=== PATIENT | female | born 1950 | race Caucasian/White ===

== ENCOUNTER 2016-08-31 15:36 | Inpatient (IN) | payer MEDICARE, OTHER ==
--- NOTE | 2016-08-31 16:25 | PDOC ---
History of Present Illness - General Chief Complaint: Rectal Bleed Stated Complaint: RECTAL BLEEDING Time Seen by Provider: 08/31/16 16:16 History Source: Patient Exam Limitations: No Limitations - History of Present Illness Initial Comments: 65 yo Yakut speaking F with h/o DMII, HTN, gastritis sent by her doctor for bleeding per rectum. [employer] phone used ([phone]) to obtain information from the patient. She stated that she noted bright red blood on Monday when she strained her bowel movement. She attributes the bleeding to pushing too hard. Since Monday, she was having 1 rectal bleeding per day till Monday associated with subjective fever and chills. She had colonoscopy and endoscopy [address] Bates and they're normal to the patient's best knowledge. She c/o chest pain in upper L chest, non-radiating, 9/10, not associated with activity, constant, reproducible. She also has R lower back pain and LUQ pain x 2 days, non-radiating, reproducible with pressing, constant. Denies shortness of breath, urinary symptom, recent travel, dizziness, malaise. Past History - Past Medical History Allergies/Adverse Reactions: Allergies Allergy/AdvReac Type Severity Reaction Status Date / Time No Known Allergies Allergy Verified 08/31/16 15:59 Home Medications: Ambulatory Orders Aspirin [ASA -] 81 mg PO DAILY 08/31/16 Metformin HCl [Glucophage] 1,000 mg PO BID 08/31/16 - Psycho/Social/Smoking Cessation Hx Suicidal Ideation: No Smoking History: Never smoked Review of Systems - Review of Systems Able to Perform ROS?: Yes Is the patient limited Faroese proficient: Yes Constitutional: No: Chills, Fever Respiratory: No: Cough, Shortness of Breath Cardiac (ROS): Yes: Chest Pain ABD/GI: Yes: Abd. Pain w/ defecation, Rectal Bleeding, Abdominal cramping : No: Dysuria *Physical Exam - Vital Signs Last Vital Signs Temp Pulse Resp BP Pulse Ox 98 F 82 19 158/87 99 08/31/16 15:59 08/31/16 15:59 08/31/16 15:59 08/31/16 15:59 08/31/16 15:59 - Physical Exam General Appearance: No: Apparent Distress Neck: positive: Normal Thyroid, Supple Respiratory/Chest: positive: Lungs Clear, Normal Breath Sounds Cardiovascular: positive: Regular Rhythm, Regular Rate, S1, S2. negative: Murmur Gastrointestinal/Abdominal: positive: Flat, Soft, Tenderness (prominent in upper quadrants, less so in LLQ). negative: Guarding, Rebound Rectal Exam: positive: heme negative stool, hemorrhoids Musculoskeletal: negative: CVA Tenderness Extremity: negative: Swelling Neurologic: positive: Fully Oriented, Alert ED Treatment Course - LABORATORY CBC & Chemistry Diagram: 09/01/16 09:55 09/01/16 09:55 *DC/Admit/Observation/Transfer Diagnosis at time of Disposition: Rectal bleeding - Discharge Dispostion Condition at time of disposition: Stable Admit: Yes
--- NOTE | 2016-08-31 17:33 | PDOC ---
[id number] I have performed the following: I have examined & evaluated the patient, The case was reviewed & discussed with the resident, I agree w/resident's findings & plan, Exceptions are as noted - HPI HPI: 65 yo F hx DM2, HTN, gastritis presents with rectal bleeding. She notes that she has had recent constipation, has been straining to defecate. The last episode of bleeding was a few days ago. She also c/o L chest pain, intermittent for the past 3 days. Denies SOB, N/V/D, diaphoresis, f/c. - Physicial Exam PE: GENERAL: Awake, alert, and fully oriented, in no acute distress HEAD: No signs of trauma EYES: PERRLA, EOMI, sclera anicteric, conjunctiva clear ENT: Auricles normal inspection, hearing grossly normal, nares patent, oropharynx clear without exudates. Moist mucosa NECK: Normal ROM, supple, no lymphadenopathy, JVD, or masses LUNGS: Breath sounds equal, clear to auscultation bilaterally. No wheezes, and no crackles HEART: Regular rate and rhythm, normal S1 and S2, no murmurs, rubs or gallops ABDOMEN: Soft, +LUQ and RUQ tenderness with guarding, normoactive bowel sounds. No rebound. No masses EXTREMITIES: Normal range of motion, no edema. No clubbing or cyanosis. No cords, erythema, or tenderness NEUROLOGICAL: Cranial nerves II through XII grossly intact. Normal speech, normal gait SKIN: Warm, Dry, normal turgor, no rashes or lesions noted. - Medical Decision Making Noted to have upper abdominal tenderness on exam. Will obtain labs including CE and lipase, as well as UA. CT a/p to r/o colitis. If all wnl, DC home.
[2016-08-31 18:06] LABS: BASOPHIL 0.6 % (0-2.0); EOSINOPHIL 0.6 % (0-4.5); MCH 31.6 pg (25.7-33.7); MCHC 34.5 g/dl (32.0-36.0); MEAN CELL VOLUME 91.8 fl (80-96); NEUTROPHILS 62.1 % (42.8-82.8); PLATELET COUNT 245 K/MM3 (134-434); RDW 13.5 % (11.6-15.6); WHITE BLOOD COUNT 3.4 K/mm3 (4.0-10.0)
[2016-08-31 18:40] LABS: ALBUMIN 3.5 g/dl (3.4-5.0); ANION GAP 7 (8-16); BILIRUBIN,TOTAL 0.4 mg/dL (0.2-1.0); CALCIUM 8.4 mg/dL (8.5-10.1); CO2 25 mmol/L (21-32); COCKROFT - GAULT 35.3345; CREATININE 2.1 mg/dL (0.55-1.02); GLUCOSE,RANDOM 186 mg/dL (74-106); SGOT/AST 26 U/L (15-37); TOT PROT 8.2 g/dl (6.4-8.2)
[2016-08-31 18:44] LABS: ALK PHOS 36 U/L (45-117); SGPT/ALT 28 U/L (12-78); TROPONIN I < 0.02 ng/ml (0.00-0.05)
[2016-08-31 19:14] LABS: URINE APPEARANCE CLEAR; URINE BILIRUBIN NEGATIVE (NEGATIVE); URINE COLOR LTYELLOW; URINE GLUCOSE (UA) 1+ (NEGATIVE); URINE KETONE NEGATIVE (NEGATIVE); URINE LEUK ESTERASE NEGATIVE (NEGATIVE); URINE NITRITE NEGATIVE (NEGATIVE); URINE UROBILINOGEN NEGATIVE E.U./dl (0.2-1.0)
[2016-08-31 19:15] LABS: URINE BLOOD 1+ (NEGATIVE); URINE PROTEIN 2+ (NEGATIVE)
[2016-08-31 19:17] LABS: URINE BACTERIA RARE /hpf (NONE SEEN); URINE MUCUS RARE; URINE RBC <1 /hpf (0-3); URINE WBC <1 /hpf (3-5)
--- NOTE | 2016-08-31 20:36 | PDOC ---
*Physical Exam - Vital Signs Last Vital Signs Temp Pulse Resp BP Pulse Ox 98.7 F 72 17 152/70 98 08/31/16 19:20 08/31/16 19:20 08/31/16 19:20 08/31/16 19:20 08/31/16 19:20 <Stefan Martins - Last Filed: 08/31/16 20:35> - Vital Signs Last Vital Signs Temp Pulse Resp BP Pulse Ox 98.7 F 72 17 152/70 98 08/31/16 19:20 08/31/16 19:20 08/31/16 19:20 08/31/16 19:20 08/31/16 19:20 <Georgia Mares - Last Filed: 08/31/16 23:57> ED Treatment Course - LABORATORY CBC & Chemistry Diagram: 08/31/16 18:00 08/31/16 18:00 - ADDITIONAL ORDERS Additional order review: Laboratory Results 08/31/16 08/31/16 08/31/16 18:00 18:00 17:15 Sodium 134 L Potassium 4.7 Chloride 102 Carbon Dioxide 25 Anion Gap 7 L BUN 31 H Creatinine 2.1 H Creat Clearance w eGFR 23.79 Random Glucose 186 H Calcium 8.4 L Total Bilirubin 0.4 AST 26 ALT 28 Alkaline Phosphatase 36 L Creatine Kinase 67 Troponin I < 0.02 Total Protein 8.2 Albumin 3.5 Lipase 295 Urine Color Ltyellow Urine Appearance Clear Urine pH 5.0 Urine Protein 2+ H Urine Glucose (UA) 1+ H Urine Ketones Negative Urine Blood 1+ H Urine Nitrite Negative Urine Bilirubin Negative Urine Urobilinogen Negative Ur Leukocyte Esterase Negative Urine RBC <1 Urine WBC <1 Ur Epithelial Cells Rare Urine Bacteria Rare Urine Mucus Rare Stool Occult Blood Negative 08/31/16 18:00 RBC 2.83 L MCV 91.8 MCHC 34.5 RDW 13.5 MPV 8.0 Neutrophils % 62.1 Lymphocytes % 29.6 Monocytes % 7.1 Eosinophils % 0.6 Basophils % 0.6 <Stefan Martins - Last Filed: 08/31/16 20:35> - LABORATORY CBC & Chemistry Diagram: 08/31/16 18:00 08/31/16 18:00 - ADDITIONAL ORDERS Additional order review: Laboratory Results 08/31/16 08/31/16 08/31/16 18:00 18:00 17:15 Sodium 134 L Potassium 4.7 Chloride 102 Carbon Dioxide 25 Anion Gap 7 L BUN 31 H Creatinine 2.1 H Creat Clearance w eGFR 23.79 Random Glucose 186 H Calcium 8.4 L Total Bilirubin 0.4 AST 26 ALT 28 Alkaline Phosphatase 36 L Creatine Kinase 67 Troponin I < 0.02 Total Protein 8.2 Albumin 3.5 Lipase 295 Urine Color Ltyellow Urine Appearance Clear Urine pH 5.0 Ur Specific [place] 1.010 Urine Protein 2+ H Urine Glucose (UA) 1+ H Urine Ketones Negative Urine Blood 1+ H Urine Nitrite Negative Urine Bilirubin Negative Urine Urobilinogen Negative Ur Leukocyte Esterase Negative Urine RBC <1 Urine WBC <1 Ur Epithelial Cells Rare Urine Bacteria Rare Urine Mucus Rare Stool Occult Blood Negative 08/31/16 18:00 RBC 2.83 L MCV 91.8 MCHC 34.5 RDW 13.5 MPV 8.0 Neutrophils % 62.1 Lymphocytes % 29.6 Monocytes % 7.1 Eosinophils % 0.6 Basophils % 0.6 <Georgia Mares - Last Filed: 08/31/16 23:57> Medical Decision Making - Medical Decision Making 08/31/16 23:[address] Kavitha Riley's answering service ([phone]), no response. Paged Dr. Riley (via cell phone) at 23:19 Awaiting call back 08/31/16 23:56 Second call was placed to Dr. Riley (via cell phone) at 23:56 and patient's case was discussed <Georgia Mares - Last Filed: 08/31/16 23:57> *DC/Admit/Observation/Transfer - Discharge Dispostion Admit: Yes <Stefan Martins - Last Filed: 08/31/16 20:35> <Georgia Mares - Last Filed: 08/31/16 23:57> Diagnosis at time of Disposition: Rectal bleeding
[2016-09-01 10:34] LABS: BASOPHIL 0.6 % (0-2.0); EOSINOPHIL 0.9 % (0-4.5); MCHC 34.8 g/dl (32.0-36.0); MEAN CELL VOLUME 91.8 fl (80-96); MEAN PLT VOLUME 8.2 fl (7.5-11.1); NEUTROPHILS 49.1 % (42.8-82.8); PLATELET COUNT 220 K/MM3 (134-434); RDW 13.1 % (11.6-15.6); WHITE BLOOD COUNT 3.1 K/mm3 (4.0-10.0)
[2016-09-01] MEDS: DEXTROSE 5%-0.45% SALINE 1,000 ML IV SCH (10:40)
[2016-09-01 12:17] LABS: ALBUMIN 3.2 g/dl (3.4-5.0); BILIRUBIN,TOTAL 0.5 mg/dL (0.2-1.0); CALCIUM 8.4 mg/dL (8.5-10.1); COCKROFT - GAULT 38.59; CREATININE 1.8 mg/dL (0.55-1.02); TOT PROT 7.6 g/dl (6.4-8.2)
--- NOTE | 2016-09-01 17:27 | EKG ---
Test Reason : Blood Pressure : / mmHG Vent. Rate : 072 BPM Atrial Rate : 072 BPM P-R Int : 168 ms QRS Dur : 088 ms QT Int : 400 ms P-R-T Axes : 040 028 051 degrees QTc Int : 438 ms NORMAL SINUS RHYTHM NORMAL ECG NO PREVIOUS ECGS AVAILABLE Confirmed by BRYAN FISCHER MD ([id number]) on 09/01/2016 5:26:52 PM Referred By: Confirmed By:BRYAN FISCHER MD
[2016-09-01 18:39] LABS: BASOPHIL 0.6 % (0-2.0); EOSINOPHIL 0.8 % (0-4.5); MCH 31.3 pg (25.7-33.7); MCHC 33.9 g/dl (32.0-36.0); MEAN CELL VOLUME 92.5 fl (80-96); MEAN PLT VOLUME 8.5 fl (7.5-11.1); NEUTROPHILS 65.7 % (42.8-82.8); PLATELET COUNT 221 K/MM3 (134-434); RDW 13.6 % (11.6-15.6); WHITE BLOOD COUNT 3.1 K/mm3 (4.0-10.0)
--- NOTE | 2016-09-01 18:58 | CON.GI ---
Consult Consult Specialty:: gastroenterology Referred by:: rectal bleeding - History of Present Illness History of Present Illness: 65 yo Peruvian speaking F with h/o DMII, HTN, gastritis sent by her doctor for bleeding per rectum. Certified Pharmacist Assistant phone used ([phone]) to obtain information from the patient. She stated that she noted bright red blood on Monday when she strained her bowel movement. She attributes the bleeding to pushing too hard. Since Monday, she was having 1 rectal bleeding per day till Monday associated with subjective fever and chills. She had colonoscopy and endoscopy [address] Bates and they're normal to the patient's best knowledge. She c/o chest pain in upper L chest, non-radiating, 9/10, not associated with activity, constant, reproducible. She also has R lower back pain and LUQ pain x 2 days, non-radiating, reproducible with pressing, constant. Denies shortness of breath, urinary symptom, recent travel, dizziness, malaise. Patient denies rectal bleeding, no nausea , no vomiting,no abdominal pain. She is very hungry . - Smoking History Smoking history: Never smoked Home Medications - Allergies Allergies/Adverse Reactions: Allergies Allergy/AdvReac Type Severity Reaction Status Date / Time No Known Allergies Allergy Verified 08/31/16 15:59 - Home Medications Home Medications: Ambulatory Orders Aspirin [ASA -] 81 mg PO DAILY 08/31/16 Metformin HCl [Glucophage] 1,000 mg PO BID 08/31/16 Review of Systems - Review of Systems Constitutional: denies: Fever Eyes: denies: Blind Spots HENT: denies: Difficult Swallowing Neck: denies: Decreased ROM Cardiovascular: denies: Chest Pain Gastrointestinal: reports: Rectal Bleeding. denies: Abdominal Pain, Bloating, Constipation, Diarrhea, Indigestion, Melena, Nausea Physical Exam-GI Vital Signs: Vital Signs Temperature 98.4 F 09/01/16 15:29 Pulse Rate 84 09/01/16 15:29 Respiratory Rate 16 09/01/16 15:29 Blood Pressure 130/78 09/01/16 15:29 O2 Sat by Pulse Oximetry (%) 100 09/01/16 09:00 Constitutional: Yes: Well Nourished Eyes: Yes: Conjunctiva Clear HENT: Yes: Atraumatic Neck: Yes: Supple Cardiovascular: Yes: Regular Rate and Rhythm Respiratory: Yes: CTA Bilaterally ...Palpate: Yes: Soft. No: Firm/Rigid, Guarding, Hepatomegaly, Mass, Pulsatile Mass, Splenomegaly, Tenderness Labs: CBC, BMP 09/01/16 18:00 09/01/16 09:55 Imaging - Results Chest X-ray: Image Reviewed (cholelithiasis, no evidence of colitis and diverticulitis) Problem List - Problems (1) Rectal bleeding Assessment/Plan: associated with straining, s/p colonoscopy by Dr Bates 2014--internal hemorrhoids R> anusol Hc suppository Miralax 34 grams bid made aware to ff-up with Dr Bates as an outpatient Code(s): K62.5 - HEMORRHAGE OF ANUS AND RECTUM (2) Anemia Assessment/Plan: R> gi work up as an outpatient advance diet ok to discharge Code(s): D64.9 - ANEMIA, UNSPECIFIED
--- NOTE | 2016-09-01 19:03 | PN ---
Progress Note (short form) - Note Progress Note: please send patient to the office after discharge for further eval;uation Problem List - Problems (1) Rectal bleeding Code(s): K62.5 - HEMORRHAGE OF ANUS AND RECTUM (2) Anemia Code(s): D64.9 - ANEMIA, UNSPECIFIED
--- NOTE | 2016-09-01 22:12 | HP ---
Admitting History and Physical - Admission History of Present Illness: 65 yo American speaking F with h/o DMII, HTN, gastritis sent by her doctor for bleeding per rectum. [employer]ding [employer] phone used ([phone]) to obtain information from the patient. She stated that she noted bright red blood on Monday when she strained her bowel movement. She attributes the bleeding to pushing too hard. Since Monday, she was having 1 rectal bleeding per day till Monday associated with subjective fever and chills. She had colonoscopy and endoscopy [address] Bates and they're normal to the patient's best knowledge. She c/o chest pain in upper L chest, non-radiating, 9/10, not associated with activity, constant, reproducible. She also has R lower back pain and LUQ pain x 2 days, non-radiating, reproducible with pressing, constant. Denies shortness of breath, urinary symptom, recent travel, dizziness, malaise. - Smoking History Smoking history: Never smoked Home Medications - Allergies Allergies/Adverse Reactions: Allergies Allergy/AdvReac Type Severity Reaction Status Date / Time No Known Allergies Allergy Verified 08/31/16 15:59 - Home Medications Home Medications: Ambulatory Orders Metformin HCl [Glucophage -] 1,000 mg PO BIDAC tablet 09/02/16 Physical Examination Vital Signs: Vital Signs Temperature 98.6 F 09/01/16 18:30 Pulse Rate 75 09/01/16 18:30 Respiratory Rate 18 09/01/16 18:30 Blood Pressure 145/62 09/01/16 18:30 O2 Sat by Pulse Oximetry (%) 100 09/01/16 09:00 Labs: CBC, BMP 09/01/16 18:00 09/01/16 09:55 Problem List - Problems (1) Anemia (2) Rectal bleeding Code(s): K62.5 - HEMORRHAGE OF ANUS AND RECTUM (3) Diabetes Code(s): E11.9 - TYPE 2 DIABETES MELLITUS WITHOUT COMPLICATIONS
[2016-09-02] MEDS: DEXTROSE 5%-0.45% SALINE 1,000 ML IV SCH ×2 (02:52→10:16)
[2016-09-02] MEDS ORDERED: metFORMIN HCL 500 MG TABLET (FP) PO SCH (07:00)
[2016-09-02 07:10] VITALS: BP 152/70; PULSE 74; TEMP 97.8
[2016-09-02] MEDS ORDERED: PANTOPRAZOLE 40 MG TABLET (FP) PO SCH (10:00)
[2016-09-02] MEDS ORDERED: INFLUENZA VACCINE 60 MCG/0.5 ML (P/F DISP.SYRIN 16-17) IM ONE (12:38)
== END 2016-09-02 14:07 | disposition home or self-care (01) | DRG 812 ==
LOC: JER 15:36 → JERBED 20:36 → J8W 09-01 02:08
PROVIDERS: ADMIT Internal Medicine; ATTEND Internal Medicine
PROC: 30233N1 Transfusion of Nonautologous Red Blood Cells into Peripheral Vein, Percutaneous Approach (ICD-10-PCS; principal; 2016-09-01)
DX: D64.9 Anemia, unspecified (principal); K62.5 Hemorrhage of anus and rectum; E11.9 Type 2 diabetes mellitus without complications; I10 Essential (primary) hypertension; K29.70 Gastritis, unspecified, without bleeding
CPT/HCPCS: 36415; 36430; 71020-TC; 74176-TC; 80053; 81003; 81015; 82272; 82550; 83690; 84484; 85025; 86850; 86900; 86901; 86922; 90686; 93005; 93010; 99285-25; G0008; P9038; P9058